=== PATIENT | male | born 1960 | race African-American/Black ===

== ENCOUNTER 2019-12-04 06:53 | Emergency (ER) | payer OTHER ==
[2019-12-04] MEDS ORDERED: ONDANSETRON 4 MG/2 ML VIAL IVP STA (07:18)
[2019-12-04] MEDS ORDERED: SODIUM CHLORIDE 0.9% 1,000 ML IV STA ×2 (07:18→09:00)
[2019-12-04 07:19] LABS: BASOPHILS % (AUTO) 0.3 %; EOSINOPHILS % (AUTO) 0.3 %; HGB - HEMOGLOBIN 15.2 g/dL (14.0-18.0); LYMPHOCYTES % (AUTO) 15.7 %; MEAN CORPUSCULAR HEMOGLOBIN 31.9 pg (27.0-31.0); MEAN CORPUSCULAR HGB CONC 34.3 g/dL (32.0-36.0); MEAN CORPUSCULAR VOLUME 92.9 fL (80.0-94.0); MEAN PLATELET VOLUME 10.4 fL (7.4-11.4); MONOCYTES # (AUTO) 0.7 10^3/uL (0.0-1.0); MONOCYTES % (AUTO) 10.5 %; NEUTROPHILS # (AUTO) 4.6 10^3/uL (1.5-6.6); PLT - PLATELET COUNT 153 10^3/uL (130-450); RED BLOOD COUNT 4.77 10^6/uL (4.70-6.10); RED CELL DISTRIBUTION WIDTH 12.8 % (12.0-15.0); WHITE BLOOD COUNT 6.3 x10^3/uL (4.8-10.8)
[2019-12-04 07:31] LABS: ALBUMIN 3.8 g/dL (3.2-5.5); ALBUMIN/GLOBULIN RATIO 1.2 (1.0-2.2); BILIRUBIN,TOTAL 0.9 mg/dL (0.2-1.0); CALCIUM 8.2 mg/dL (8.5-10.3); CREATININE 1.1 mg/dL (0.6-1.2)
--- NOTE | 2019-12-04 08:18 | ED Physician Documentation ---
History of Present Illness - Stated complaint Stated Complaint: VOMITING/DIARRHEA - Chief complaint Chief Complaint: Abd Pain - History obtained from History obtained from: Patient - Additonal information Additional information: Patient comes emergency department complaining of vomiting and diarrhea for the last 3 days. The patient states it started 3 days ago at work after a coworker gave him a tamale. Patient states he began to notice some unrest in his bowels and had diarrhea later that night. He states that the diarrhea continued throughout the night and the next day, and that by the end of the next day, he was vomiting as well. He states he has not really been able to keep fluids down since. He has not tried to eat again. The patient states that he is still having watery diarrhea, as well. 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 He states some of the workers do not wear an apron at work, so the chicken feces and other debris is on their clothing when they come in for lunch. The patient states he is not sure whether he has picked up germs from that or whether a coworker was sick and did not tell him. He does not know whether the man who given the tamale is also sick. Patient denies any other complaints at this time. He states he is otherwise f airly healthy and has not had any stomach issues chronically. The patient states that his last episode of vomiting was about 4 hours ago. Review of Systems Ten Systems: 10 systems reviewed and negative Constitutional: reports: Reviewed and negative Eyes: reports: Reviewed and negative Ears: reports: Reviewed and negative Nose: reports: Reviewed and negative Throat: reports: Reviewed and negative Cardiac: reports: Reviewed and negative Respiratory: reports: Reviewed and negative GI: reports: Abdominal Pain (Cramping), Nausea, Vomiting, Diarrhea : reports: Reviewed and negative Skin: reports: Reviewed and negative Musculoskeletal: reports: Reviewed and negative Neurologic: reports: Reviewed and negative Psychiatric: reports: Reviewed and negative Endocrine: reports: Reviewed and negative Immunocompromised: reports: Reviewed and negative PD PAST MEDICAL HISTORY - Past Medical History Past Medical History: Yes Cardiovascular: High cholesterol Respiratory: None Neuro: None Endocrine/Autoimmune: None GI: None : None HEENT: None Psych: None Musculoskeletal: Other Derm: None - Past Surgical History Past Surgical History: Yes General: Colonoscopy, Other Ortho: Rotator cuff repair - Present Medications Home Medications: Ambulatory Orders Medication Instructions Recorded Confirmed Multivitamin [Multivitamins] 1 each PO DAILY 11/16/13 12/04/19 Loperamide [Imodium] 2 mg PO BID PRN #8 capsule 12/04/19 Ondansetron Odt [Zofran Odt] 4 mg TL Q6H PRN #10 tablet 12/04/19 - Allergies Allergies/Adverse Reactions: Allergies Allergy/AdvReac Type Severity Reaction Status Date / Time No Known Drug Allergies Allergy Verified 12/04/19 07:10 - Social History Does the pt smoke?: No Smoking Status: Never smoker Does the pt drink ETOH?: No Does the pt have substance abuse?: No - Immunizations Immunizations are current?: Yes - POLST Patient has POLST: No PD ED PE NORMAL - Vitals Vital signs reviewed: Yes - General General: Alert and oriented X 3, No acute distress - HEENT HEENT: Atraumatic, PERRL, EOMI, Moist mucous membranes - Neck Neck: Supple, no meningeal sign - Cardiac Cardiac: RRR, No murmur - Respiratory Respiratory: No respiratory distress, Clear bilaterally - Abdomen Abdomen: Soft, Non distended, Other (Mild tenderness, epigastric area, no rebound or guarding.) - Derm Derm: Normal color, Warm and dry, No rash - Extremities Extremities: No deformity, No edema, No calf tenderness / cord - Neuro Neuro: Alert and oriented X 3, Other (Grossly intact) - Psych Psych: Normal mood, Normal affect Results - Vitals Vitals: Vital Signs - 24 hr 12/04/19 12/04/19 12/04/19 07:05 07:28 09:20 Temperature 37.0 C 37 C Heart Rate 87 82 68 Respiratory 18 18 18 Rate Blood Pressure 163/94 H 159/98 H 136/88 H O2 Saturation 97 98 100 12/04/19 10:00 Temperature 36.7 C Heart Rate 70 Respiratory 18 Rate Blood Pressure 148/84 H O2 Saturation 100 Oxygen O2 Source Room air - Labs Labs: Laboratory Tests 12/04/19 12/04/19 12/04/19 07:11 07:11 09:15 WBC 6.3 RBC 4.77 Hgb 15.2 Hct 44.3 MCV 92.9 MCH 31.9 H MCHC 34.3 RDW 12.8 Plt Count 153 MPV 10.4 Neut # (Auto) 4.6 Lymph # (Auto) 1.0 L [place] # (Auto) 0.7 Eos # (Auto) 0.0 Baso # (Auto) 0.0 Absolute Nucleated RBC 0.00 Nucleated RBC % 0.0 Sodium 136 Potassium 3.5 Chloride 102 Carbon Dioxide 23 Anion Gap 11.0 BUN 15 Creatinine 1.1 Estimated GFR (MDRD) 84 L Glucose 112 H Calcium 8.2 L Total Bilirubin 0.9 AST 57 H ALT 48 Alkaline Phosphatase 68 Total Protein 7.0 Albumin 3.8 Globulin 3.2 Albumin/Globulin Ratio 1.2 Lipase 25 Urine Color YELLOW Urine Clarity CLEAR Urine pH 7.0 Ur Specific [place] 1.020 Urine Protein NEGATIVE Urine Glucose (UA) NEGATIVE Urine Ketones 40 H Urine Occult Blood NEGATIVE Urine Nitrite NEGATIVE Urine Bilirubin NEGATIVE Urine Urobilinogen 0.2 (NORMAL) Ur Leukocyte Esterase NEGATIVE Ur Microscopic Review NOT INDICATED Urine Culture Comments NOT INDICATED PD MEDICAL DECISION MAKING - ED course Complexity details: reviewed results, re-evaluated patient, considered differential, d/w patient ED course: Patient was treated symptomatically with IV fluids and Zofran. He was worked up with labs and a stool culture was ordered. Pt was found to be feeling a little better after symptomatic management. His labs were unremarkable. He was not able to give a stool sample here, but we have discussed that this will be the most helpful test, should his sx continue for more than a few days. I have given him a work note for tomorrow, and he has been given the usual indications for return. Departure - Departure Disposition: 01 Home, Self Care Clinical Impression: Gastroenteritis Condition: Stable Instructions: ED Gastroenteritis Viral Prescriptions: Loperamide [Imodium] 2 mg PO BID PRN #8 capsule PRN Reason: Diarrhea Ondansetron Odt [Zofran Odt] 4 mg TL Q6H PRN #10 tablet PRN Reason: Nausea / Vomiting Comments: Your labs, overall, look good. Sometimes a urinary tract infection can cause vomiting and diarrhea, but your urine actually looks quite good. At this point in time, the most likely cause of your vomiting and diarrhea is a viral illness, which are very common in the [place]. However, given your work at the [employer], a stool sample evaluation would be ideal to be sure you do not have Salmonella or some other poultry born infection in your intestines. Generally, even these kinds of infections will be gotten rid of by the body on its own. However, a course of antibiotics can shorten the duration of the illness. If you have given us a stool sample, then we will call you if the results are positive. Otherwise, if you are able to catch a sample, you may bring this to your primary doctor's office and they can send it to the lab to have it evaluated. Please take the Zofran for nausea and the Imodium for the diarrhea as needed. You have been given a work note for tomorrow. Forms: Activity restrictions Discharge Date/Time: 12/04/19 10:29
[2019-12-04 09:29] LABS: BILIRUBIN,URINE NEGATIVE (NEGATIVE); GLUCOSE, URINE (UA) NEGATIVE (NEGATIVE); KETONES,URINE (UA) 40 mg/dL (NEGATIVE); LEUKOCYTE ESTERASE, URINE NEGATIVE (NEGATIVE); NITRITE,URINE NEGATIVE (NEGATIVE); OCCULT BLOOD,URINE NEGATIVE (NEGATIVE); PROTEIN,URINE NEGATIVE (NEGATIVE); UROBILINOGEN,URINE 0.2 (NORMAL) E.U./dL (NORMAL)
[2019-12-04 09:30] LABS: CLARITY,URINE CLEAR (CLEAR)
[2019-12-04 10:25] VITALS: BP 148/84
== END 2019-12-04 10:29 | disposition home or self-care (01) ==
LOC: ED 06:53
DX: K52.9 Noninfective gastroenteritis and colitis, unspecified (principal)
CPT/HCPCS: 36415; 80053; 81001; 81003; 83690; 85025; 87045; 87046; 87086; 87798; 96361; 96374; 99283

== ENCOUNTER 2022-09-25 13:46 | Outpatient (CLI) | payer OTHER ==
--- NOTE | 2022-09-27 07:49 | MRI Report ---
PROCEDURE: KNEE WO - RT INDICATIONS: RIGHT KNEE PAIN TECHNIQUE: Noncontrast sagittal PD fast spin echo and T2 fast spin echo with fat saturation, sagittal 3-D gradie nt sequence with fat saturation; coronal T1 spin echo and PD fast spin echo with fat saturation, and axial PD fast spin echo with fat saturation through the knee. COMPARISON: MRI right knee, 09/12/2013. FINDINGS: Image quality: Excellent. Menisci: There are medial and lateral meniscal extrusions. There is complex tear of the posterior hor n and body of the medial meniscus. There is horizontal tear of the anterior horn and body of the late ral meniscus. There is intrasubstance degeneration in the posterior horn the lateral meniscus. Cruciate ligaments: The anterior cruciate ligament is abnormal, likely secondary to chronic high-grad e partial tear and superimposed mucoid degeneration. There is mild mucoid degeneration of the distal posterior cruciate ligament. Medial structures: The medial collateral ligament appears thickened and is homogeneous, likely seque lae of old injury. The semimembranosus tendon insertions and meniscocapsular junction appear intact. Visualized portions of the pes anserinus tendons appear normal. No abnormal bursal fluid. Lateral structures: The lateral collateral ligament, long and short heads of the biceps femoris tend on appear intact. The popliteus tendon appears normal. Iliotibial band appears normal. Anterior structures: The quadriceps and patellar tendons appear intact. There is moderate quadriceps 90s and patellar tendinitis. There is fragmentation of tibial tubercle suggesting Jono-Schlatter d isease. There is lateral to the patella. No femoral trochlear dysplasia or ventral trochlear promine nce. No edema in the infrapatellar fat pad. Bones and cartilage: No bone marrow contusions or fractures. 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 Joint space: There is small knee joint effusion. There is a tiny Esquivel's cyst. There is a synovial cyst at the proximal tibiofibular joint. Normal appearing synovial plicae are incidentally noted. Th ere are intra-articular bodies in the intercondylar notch. IMPRESSION: 1. Medial meniscal tear. 2. Lateral meniscal tear. 3. 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 4. Mild mucoid degeneration of PCL. 5. Moderate quadriceps tendinitis and patellar tendinitis. 6. [id number] tricompartmental osteoarthritis. 7. 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 8. Intra-articular bodies in the intercondylar notch. Reviewed by: Sofya Alvarado MD on 09/27/2022 7:48 AM PDT Approved by: Sofya Alvarado MD on 09/27/2022 7:48 AM PDT Station ID: [id number]
== END 2022-09-25 13:47 | disposition home or self-care (01) ==
LOC: DI 13:46
PROVIDERS: ATTEND Student in an Organized Health Care Education/Training Program
DX: S83.241A Other tear of medial meniscus, current injury, right knee, initial encounter (principal); S83.281A Other tear of lateral meniscus, current injury, right knee, initial encounter; S83.511A Sprain of anterior cruciate ligament of right knee, initial encounter; M23.621 Other spontaneous disruption of posterior cruciate ligament of right knee; M76.51 Patellar tendinitis, right knee; M17.11 Unilateral primary osteoarthritis, right knee; R93.6 Abnormal findings on diagnostic imaging of limbs